=== PATIENT | female | born 1990 | race Caucasian/White ===

== ENCOUNTER → 2024-07-27 10:28 | Outpatient (CLI) | payer OTHER, SELFPAY ==
--- NOTE | 2024-07-27 | DI.RAD.S_ITS ---
PROCEDURE: XR WRIST RT 2V INDICATIONS: ARTHRITIS TECHNIQUE: Two views of the wrist were acquired. COMPARISON: None. FINDINGS: Bones: No acute fractures or dislocations. There is a were negative variance. No hypertrophic spurring or subcortical cystic changes seen at the articular surfaces. No suspicious bony lesions. Soft tissues: No suspicious soft tissue calcifications. IMPRESSION: No acute abnormality or evidence of significant arthritic change. Dictated by: Hortencia Stephens M.D. on 07/27/2024 at 14:31 Approved by: Hortencia Stephens M.D. on 07/27/2024 at 14:32
--- NOTE | 2024-07-27 | DI.RAD.S_ITS ---
PROCEDURE: XR WRIST LT 2V INDICATIONS: ARTHRITIS TECHNIQUE: Two views of the wrist were acquired. COMPARISON: None. FINDINGS: Bones: Ventral spur fixation plate along the distal radius with intact screws. Fracture plane is not well seen. Radiocarpal and distal radioulnar alignment appears within normal limits on the two given views. No suspicious bone remottling or subcortical cystic changes seen. Soft tissues: No suspicious soft tissue calcifications. IMPRESSION: No acute bony abnormality. Intact fixation hardware. No radiographic evidence of significant osteoarthritis in the wrist. Dictated by: Hortencia Stephens M.D. on 07/27/2024 at 14:30 Approved by: Hortencia Stephens M.D. on 07/27/2024 at 14:31
--- NOTE | 2024-07-27 | DI.RAD.S_ITS ---
PROCEDURE: XR ANKLE LT 2V INDICATIONS: ARTHRITIS TECHNIQUE: Two views of the ankle were acquired. COMPARISON: None. FINDINGS: Bones: No acute fractures or malalignment. Intact medial malleolar screws and intact lateral fibular compression plate with transverse screws. Slight residual fragmentation at the tip medial ankle mortise appears intact on the two given views. Moderate size plantar calcaneal spur without erosive change. Soft tissues: Small tibiotalar joint effusion. Achilles tendon. IMPRESSION: Intact left ankle fixation hardware. Moderate calcaneal spur without erosion. Probably small tibiotalar joint effusion. Dictated by: Hortencia Stephens M.D. on 07/27/2024 at 14:27 Approved by: Hortencia Stephens M.D. on 07/27/2024 at 14:29
--- NOTE | 2024-07-27 | DI.RAD.S_ITS ---
PROCEDURE: XR ANKLE RT 2V INDICATIONS: ARTHRITIS TECHNIQUE: 3 views of the ankle were acquired. COMPARISON: None. FINDINGS: Bones: No fractures or dislocations. Ankle mortise is normally aligned. No suspicious bony lesions. Tiny plantar calcaneal spur without erosion. Soft tissues: No tibiotalar joint effusion. Achilles tendon appears normal. IMPRESSION: No acute bony abnormality or significant effusion. Dictated by: Hortencia Stephens M.D. on 07/27/2024 at 14:29 Approved by: Hortencia Stephens M.D. on 07/27/2024 at 14:30
== END ==
PROVIDERS: PCP Dermatology; Referring Provider Chiropractor; Visit Provider Chiropractor
DX: M13.80 Other specified arthritis, unspecified site (principal); M77.32 Calcaneal spur, left foot
CPT/HCPCS: 73100; 73600